=== PATIENT | male | born 1985 | race American Indian/Alaskan Native ===

== ENCOUNTER 2019-06-03 19:46 | Emergency (ER) | payer SELFPAY ==
[2019-06-03 20:37] VITALS: BP 158/111
--- NOTE | 2019-06-03 20:38 | Emergency Department Report ---
Blank Doc - Documentation Documentation: 33-year-old male that presents with flank pain. This initial assessment/diagnostic orders/clinical plan/treatment(s) is/are subject to change based on patient's health status, clinical progression and re- assessment by fellow clinical providers in the ED. Further treatment and workup at subsequent clinical providers discretion. Patient/guardians urged not to elope from the ED as their condition may be serious if not clinically assessed and managed. Initial orders include: 1- Patient sent to [facility] for further evaluation and treatment 2- [facility]A
[2019-06-03 21:47] LABS: Bacteria,Urine 1+ /HPF (Negative); Mucus,Urine FEW /HPF
[2019-06-03 22:04] LABS: Bilirubin,Urine Negative (Negative); Color,Urine Yellow (Yellow)
[2019-06-03 22:05] LABS: Blood,Urine Negative (Negative)
== END 2019-06-04 00:05 | disposition left against medical advice (07) ==
LOC: ED 19:46
DX: M54.5 Low back pain (principal); Z53.21 Procedure and treatment not carried out due to patient leaving prior to being seen by health care provider
CPT/HCPCS: 81001; 87086